=== PATIENT | male | born 1940 | race Caucasian/White ===

== ENCOUNTER 2016-12-29 10:31 | Inpatient (IN) | payer MEDICARE ==
--- NOTE | ~2016-12-29 | DS ---
Discharge Summary [facility] [address] [facility] [place]. [address] NAME: SARAH VALLE : 41 STATUS : DIS IN PAT#: [id number] AGE: 76 ADM/REG DATE : 12/29/16 MR#: [id number] REPORT SERV DATE: 01/04/17 DICTATED BY: ANDRES ESCALONA DATE: 01/03/17 REPORT STATUS : Draft TRANSCRIBED BY: MODL DATE: 01/03/17 ADMISSION DATE: 12/29/2016 DISCHARGE DATE: 01/03/2017 REASON FOR ADMISSION: Encephalopathy and rhabdomyolysis. HISTORY OF PRESENT ILLNESS: Please refer to Dr. Palomo's history and physical dated 12/29/2016 for complete details regarding the patient's admission. In brief, the patient was admitted to the Hospitalist Service for management of his toxic metabolic encephalopathy and hyperammonemia along with rhabdomyolysis. HOSPITAL COURSE: The patient had an uncomplicated hospital course, several issues were addressed. 1. Toxic metabolic encephalopathy, initially with unclear etiology, but the patient is on Depakote for bipolar disorder. He is also taking an SSRI along with Seroquel. His ammonia level was mildly elevated at around 60 on admission. He had a chest x-ray on admission which showed no acute process. The patient was unable to lie flat in order to obtain a CT scan of his abdomen and CT scan of his head. Dr. Palomo admitted the patient and had decreased his Depakote. His Depakote level was around 88, which was within normal limits and started him on lactulose. His toxic metabolic encephalopathy had resolved. He is able to identify where he is and he is alert and oriented times 3 to [address] Blount was consulted and recommended not titrating up to his normal dose of Depakote which was 500 mg in the morning and 1000 at night, but to do [address] Blount also recommended discontinuing his SSRI, but resuming his Seroquel. As stated above, his encephalopathy has resolved back down to baseline. 2. Rhabdomyolysis, mild, presented with CPK of around 2000 to 3000. He was put on IV fluids, this had resolved. 3. History of bipolar disorder. This had been stable. The patient has not had any behavioral changes, in fact, he has been very quite, he has been quite pleasant. 4. Hypothyroidism. We had increased his Synthroid dose from 100 to 125 mg in the hospital. 5. Debility. Physical Therapy had evaluated the patient and recommended rehab. DISPOSITION: The patient will be discharged today to [facility] for further rehab with anticipation of going home after that. We have made some minor medication adjustments. He will be discharged today in stable condition. DISCHARGE DIAGNOSES: 1. Toxic metabolic encephalopathy, likely secondary to hyperammonemia, now resolved. Unable to do a CT scan or an MRI secondary to unable to lie flat. 2. Hyperammonemia secondary to Depakote, now resolved with lactulose. 3. Hypothyroidism. 4. Bipolar disorder. 5. Rhabdomyolysis. PROCEDURES: Include consultation with Dr. Blount and chest x-ray. Discharge Summary [address] [address] NAME: SARAH VALLE : 41 STATUS : DIS IN PAT#: [id number] AGE: 76 ADM/REG DATE : 12/29/16 MR#: [id number] REPORT SERV DATE: 01/04/17 DICTATED BY: ANDRES ESCALONA DATE: 01/03/17 REPORT STATUS : Draft TRANSCRIBED BY: SAMANTHA DATE: 01/03/17 DISCHARGE MEDICATIONS: Include Xanax 0.5 mg at bedtime, Iodosorb gel to topical wounds daily, Depakote 500 mg twice a day, Mcgraw 10/325 mg t.i.d., lactulose 30 mL liquid twice a day to titrate to two to three bowel movements per day, Synthroid 125 mcg daily, magnesium oxide 800 mg twice a day, torsemide 20 mg daily, Seroquel 100 mg at bedtime, albuterol p.r.n., and Klor-Con 10 mEq daily. The patient will be discharged to rehab today. This Dr. Andres Escalona spending over 30 minutes discharge planning and coordination of care of Mr. Valle. DICTATED BY: MD LD Wright/SAMANTHA Andres Escalona MD / [id number] CC: MD Steffen Wright M.D.
--- NOTE | ~2016-12-29 | HP ---
History And Physical [place] [address] [facility] [place]. [address] NAME: SARAH VALLE : 41 STATUS : ADM IN [facility]#: [id number] AGE: 76 ADM/REG DATE : 12/29/16 MR#: [id number] REPORT SERV DATE: 12/29/16 DICTATED BY: MAMIE SILVEIRA DATE: 12/29/16 REPORT STATUS : Draft TRANSCRIBED BY: MODL DATE: 12/29/16 DATE OF ADMISSION: 12/29/2016 REASON FOR ADMISSION: Hepatic encephalopathy and rhabdomyolysis. HISTORY OF PRESENT ILLNESS: Mr. Valle is a 76-year-old male with bipolar disorder with a history of previous hepatic encephalopathy in 2014 during which he had an evaluation, which was negative for evidence of cirrhosis, who presented to the emergency department today with confusion, weakness, found to have once again an elevated ammonia. We were asked to admit. The patient actually denies any confusion. Does acknowledge weakness in his back and in his neck, but no focal weakness. He actually remained ambulatory. He complains of low back pain. No other pains. No headache, no chest pain, and no abdominal pain. No nausea or vomiting. No shortness of breath. The patient denies any seizures. He denies any history of falls. He denies any gastrointestinal or urinary complaints. No fever or chills. No bleeding. He claims he is compliant with medications. He denies any new medications. He denies any visits to a psychiatrist. He says his primary care provider handles his medications. The patient also had a rash for a long time, but does not know the cause thereof. REVIEW OF SYSTEMS: The remainder of review of systems is negative. PAST MEDICAL HISTORY: As mentioned above. MEDICATIONS: Include Xanax, Lasix, potassium, Synthroid, Seroquel, Depakote, [place], Zoloft. There may be some other med list being obtained. ALLERGIES: ALLERGY TO SULFA. FAMILY HISTORY: Positive for coronary artery disease. SOCIAL HISTORY: No tobacco, alcohol, or drugs. PHYSICAL EXAMINATION: VITAL SIGNS: On presentation, blood pressure 162/80, pulse 76, respirations 14, afebrile, sat 96%. GENERAL: Awake, alert, and oriented x3, in no apparent distress. HEENT: Pupils are equal and reactive to light. Extraocular movements are intact. No cranial nerve deficits. Moist mucous membranes. Normal oropharynx. He had very bloodshot sclerae and a facial rash was noted. NECK: Revealed no jugular venous distention, carotid bruits, lymphadenopathy, or goiter. CARDIAC: Regular rate and rhythm. No murmurs, gallops, or rubs. LUNGS: Clear to auscultation bilaterally. Good excursion. ABDOMEN: Nondistended and nontender. Bowel sounds are normal and active. There were no stigmata of chronic liver disease. EXTREMITIES: Revealed 2+ edema bilaterally. Good pulses and capillary refill. He had History And Physical [place] [address] [facility] [place]. [address] NAME: SARAH VALLE : 41 STATUS : ADM IN [facility]#: [id number] AGE: 76 ADM/REG DATE : 12/29/16 MR#: [id number] REPORT SERV DATE: 12/29/16 DICTATED BY: MAMIE SILVEIRA DATE: 12/29/16 REPORT STATUS : Draft TRANSCRIBED BY: SAMANTHA DATE: 12/29/16 significant onychogryphosis of the toenails. SKIN: Notable for a scaly rash somewhat psoriasiform particularly on his arms and stays particularly in sun-exposed areas, also seen on his legs, but notably absent from his abdomen. This was nonblanching and nontender, and again the patient said he had for a long time. NEUROLOGIC: The patient had 5/5 strength in all four extremities. He had no sensory defects. He did, however, have a resting tremor with a hint of asterixis and the diminishment of his finger to nose. PSYCHIATRIC: He was appropriate, but mildly confused. LABORATORY EVALUATION: Sodium 134, potassium 4.0, chloride 94, bicarb 29, BUN 16, creatinine 1.0, glucose 116, CPK of 3363, ammonia of 64. White count 8000, hemoglobin and hematocrit 14 and 41, platelets 181. Depakote 86. Urinalysis negative. Liver function enzymes within normal limits. IMAGING: EKG reviewed by me showed normal sinus rhythm. Chest x-ray reviewed by me showed no apparent disease. ASSESSMENT AND PLAN: 1. Hepatic encephalopathy. The patient was found to have ammonia levels greater than and had a negative hepatic ultrasound at that time. This appears to be related instead to Depakote toxicity as valproic acid is well known to disrupt the urea cycle in the liver. Depakote levels are noted to be toxic as well. This will be held. Lactulose will be initiated. We should, however, maintain an index of suspicion of the possibility of comorbid underlying hepatic disease looking at the workup from last time. He did not have hepatitis serologies given his possible remote exposures. 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 2. Rhabdomyolysis, this is likely also a medication toxicity, almost any psychiatric medicine has been associated with rhabdomyolysis in the past, particularly medicine such as Depakote and also neuroleptic such as Seroquel. Therefore, the neuroleptics will also have to be held, although it is okay to continue his sertraline and benzodiazepines, which may instead need to be increased to account for any agitation he might have. It should be noted the patient with bipolar disease is on an SSRI, however, which is not felt to be helpful in typical bipolar. We will have Dr. Blount help with the management of his psychiatric condition and try to help assist with the long-term plan regarding that. In the meantime in regard to rhabdomyolysis, the patient's urine will need to be alkalinized, and with a goal serum pH of 7.5, he will be initiated on a bicarbonate infusion. Potassium and magnesium will be supplemented in the alkaline state. 3. Hypothyroidism. The patient's TSH will also be evaluated as certainly severe hypo or hyperthyroidism can lead to psychiatric or musculoskeletal side affects. 4. As for the rash, we mentioned the possibility of porphyria cutanea tarda, other considerations would include guttate psoriasis, which typically would not have a predilection for sun-exposed areas, the patient may need Dermatology referral at discharge. 5. Bipolar disease as mentioned above, I do suspect the patient needs a medication History And Physical [address] [address] NAME: SARAH VALLE : 41 STATUS : ADM IN PAT#: [id number] AGE: 76 ADM/REG DATE : 12/29/16 MR#: [id number] REPORT SERV DATE: 12/29/16 DICTATED BY: MAMIE SILVEIRA DATE: 12/29/16 REPORT STATUS : Draft TRANSCRIBED BY: SAMANTHA DATE: 12/29/16 overall. He appears to be intolerant of the Depakote and I questioned whether any changes in neuroleptics will also be required. Dr. Blount will see him in consultation and Dr. Galaviz will see tomorrow. RSAlbert/SAMANTHA Mamie Silveira M.D. / [id number] CC: MD Steffen Wright M.D.
--- NOTE | ~2016-12-29 | CN ---
Consultation Report [facility] [address] [place]. [address] NAME: SARAH PALMA : 41 STATUS : ADM IN PAT#: [id number] AGE: 76 ADM/REG DATE : 12/29/16 MR#: [id number] REPORT SERV DATE: 12/30/16 DICTATED BY: NAHID LUONG DATE: 12/30/16 REPORT STATUS : Draft TRANSCRIBED BY: MODHéctor DATE: 12/30/16 PSYCHIATRIC CONSULTATION DATE OF CONSULTATION: 12/30/2016 I reviewed this patient's current and old medical record. I discussed patient's status with Dr. Palomo, yesterday. HISTORY OF PRESENT ILLNESS: He was admitted with some confusion, rhabdomyolysis, and elevated ammonia level. HOME MEDICATIONS: Included Xanax 1 mg at bedtime, Depakote 500 mg a.m. and 1000 mg bedtime, hydrocodone APAP 10/325 t.i.d., Seroquel 100 mg bedtime, and Zoloft 50 mg daily. I previously saw him in consultation on 03/25/2015, when he was admitted with pneumonia and probable sepsis. At that time, he told me he had three previous psychiatric admissions with symptoms of tri. The [facility] of [facility] His PCP was prescribing his psychotropic medications at that time, and he has continued to do so. The patient also reported that he had experienced episodes of depression over the years. SOCIAL HISTORY: He is . He lives alone. He is still friendly with his ex-. A daughter closely monitors his medications. FAMILY HISTORY: He reported that one sibling has some obsessive-compulsive traits and another may have some mood issues. MENTAL STATUS: Initially, he complained that he did not sleep last night. Otherwise, he was very pleasant and cooperative. He did not remember seeing me about two years ago and he had no memory for that hospitalization. His mood was somewhat anxious. His affect was appropriate. Occasionally, he had difficulty forming or completing a sentence. His mentation was very slow. He had no delusions. He had no hallucinations. He was oriented to "[facility]"[place]." He did not know the month or the year. DIAGNOSES: 1. Delirium, of unclear etiology. 2. Bipolar disorder, by history. RECOMMENDATIONS: I will discontinue the Zoloft and start him back on Seroquel at a reduced dose of 50 mg at bedtime. I will follow. KADE/SAMANTHA Nahid Consultation Report [place] [id number] [place]. [address] NAME: SARAH PALMA : 41 STATUS : ADM IN PAT#: [id number] AGE: 76 ADM/REG DATE : 12/29/16 MR#: [id number] REPORT SERV DATE: 12/30/16 DICTATED BY: NAHID LUONG DATE: 12/30/16 REPORT STATUS : Draft TRANSCRIBED BY: SAMANTHA DATE: 12/30/16 Aye Luong / [id number] CC: MD Steffen Wright M.D.
[~2016-12-29 10:31] MED LIST: *UNABLE1; ALA-CORT1 % EX; COGEN1 PO; COLD PO; DEPAKOT500 PO; DUONEB INH; GENERLAC PO; HYDROCORT0.5 % TOP; HYDROCORT12 TOP; KLOR-CON 1010 MEQ PO; L20 PO; LACT30UDL PO; LEVAQUIN750 MG PO; LEVOTHYROXIN100 MCG PO; LEVOTHYROXIN150 MCG PO; MIRALAXPKT PO; NORCO1 TA2 PO; NORCO1 TAB PO; OMNICEF300 PO; PCET PO; PROBIOTIC CAPSULE PO; PROBIOTIC PO; PROTONIX PO; RISP2 PO; SEROQUEL XR200 MG PO; SEROQUEL1C; SEROQUEL1C PO; SEROQUEL200 MG PO; SYN.15 PO; TYLENOL COUGH PO; VITC500 PO; X5 PO; XANAX1 MG PO; ZITH250 PO; ZOL100 PO; [UNRECOGNIZED DRUG - REMARK] PO
[2016-12-29 11:28] LABS: BASOPHILS 0.1 %; BASOPHILS ABSOLUTE 0.01 10/3/uL (0.0-0.16); EOSINOPHILS 1.8 %; EOSINOPHILS ABSOLUTE 0.14 10/3/uL (0.0-0.53); ER CBC TAT 0 Hrs 07 Mins; HEMATOCRIT 40.8 % (40.0-51.0); HEMOGLOBIN 13.6 g/dL (13.6-17.8); IMMATURE GRANULOCYTES 0.4 %; IMMATURE GRANULOCYTES ABSOLUTE 0.03 10/3/uL (0.0-0.11); LYMPHOCYTES 14.7 %; LYMPHOCYTES ABSOLUTE 1.14 10/3/uL (0.67-4.30); MANUAL DIFF NO %; MEAN CORPUS HGB CONC 33.3 g/dL (32.0-36.0); MEAN CORPUSCULAR HEMOGLOB 30.1 pg (26.0-34.0); MEAN CORPUSCULAR VOLUME 90.3 fL (80-100); MEAN PLATELET VOLUME 9.4 fL (9.2-13.0); MONOCYTES 11.6 %; NEUTROPHILS 71.4 %; NEUTROPHILS ABSOLUTE 5.53 10/3/uL (2.02-8.40); PLATELET COUNT 181 10/3/uL (150-400); RBC DISTRIBUTION WIDTH 14.1 % (12.0-16.0); RED CELL COUNT 4.52 10/6/uL (4.7-6.1); WHITE BLOOD CELLS 7.8 10/3/uL (4.5-10.5)
[2016-12-29 11:32] LABS: ASCORBIC ACID (UR NOT ORDER) NEG (NEG); BILIRUBIN, URINE NEGATIVE (NEG); ER URINALYSIS TAT 0 Hrs 11 Mins; KETONE, URINE NEGATIVE (NEG); LEUKOCYTE ESTERASE(NOT OR NEG (NEG); NITRITE (URINE) NEG (NEG); WBC (NOT ORDERED) (RFLEX) < 1 (0-5)
[2016-12-29 11:37] LABS: PROTIME (NOT ORD) 13.5 SEC (12.0-14.5)
[2016-12-29 11:38] LABS: PARTIAL THROMBO TIME 30.6 SEC (22.5-37.2)
[2016-12-29 11:47] LABS: ALBUMIN 3.4 G/DL (3.5-5.0); BUN (BLOOD UREA NITROGEN) 16 MG/DL (6-23); CALCIUM, SERUM 8.4 MG/DL (8.5-10.4); CHEST PAIN PROFILE TAT 0 Hrs 26 Mins; CHLORIDE, SERUM 99 MMOL/L (96-112); CO2 (CARBON DIOXIDE) 29 MMOL/L (24-34); CREATININE 1.05 MG/DL (0.70-1.30); GFR AFRICAN AMERICAN 80 ML/MIN (>=60); GFR NON AFRICAN AMERICAN 69 ML/MIN (>=60); SGOT(AST) 70 U/L (5-40); SGPT(ALT) 27 U/L (5-65); SODIUM, SERUM 134 MMOL/L (135-148); TOTAL BILIRUBIN 0.5 MG/DL (0-1.2); TOTAL PROTEIN 6.7 G/DL (6.0-8.5); TROPONIN I 0.02 NG/ML (<0.05)
[2016-12-29 11:48] LABS: ALKALINE PHOSPHATASE 83 U/L (45-117); DIRECT BILIRUBIN < 0.1 MG/DL (0.0-0.4); GLUCOSE, SERUM 116 MG/DL (60-99); INDIRECT BILIRUBIN(NOT ORDER) 0.4 MG/DL (0.1-0.9)
[2016-12-29 12:00] LABS: CPK 3363 U/L (0-200)
[2016-12-29] MEDS ORDERED: NORCO1 TAB PO (13:25)
[2016-12-29] MEDS ORDERED: DEPAKOT500 PO ×2 (13:25)
[2016-12-29] MEDS ORDERED: L20 PO (13:26)
[2016-12-29] MEDS ORDERED: KLOR-CON 1010 MEQ PO (13:26)
[2016-12-29] MEDS ORDERED: LEVOTHYROXIN100 MCG PO (13:26)
[2016-12-29] MEDS ORDERED: XANAX1 MG PO (13:26)
[2016-12-29] MEDS ORDERED: SEROQUEL1C PO (13:26)
[2016-12-29] MEDS ORDERED: ZOL50 PO (13:27)
[2016-12-29] MEDS ORDERED: ALBUTEROL0.083 % INH (13:28)
[2016-12-29] MEDS ORDERED: ADVIL PO (13:28)
[2016-12-30 09:12] LABS: BASOPHILS 0.1 %; BASOPHILS ABSOLUTE 0.01 10/3/uL (0.0-0.16); EOSINOPHILS 1.6 %; EOSINOPHILS ABSOLUTE 0.16 10/3/uL (0.0-0.53); HEMATOCRIT 43.5 % (40.0-51.0); HEMOGLOBIN 14.7 g/dL (13.6-17.8); IMMATURE GRANULOCYTES 0.3 %; IMMATURE GRANULOCYTES ABSOLUTE 0.03 10/3/uL (0.0-0.11); LYMPHOCYTES 10.3 %; LYMPHOCYTES ABSOLUTE 1.02 10/3/uL (0.67-4.30); MEAN CORPUS HGB CONC 33.8 g/dL (32.0-36.0); MEAN CORPUSCULAR HEMOGLOB 30.9 pg (26.0-34.0); MEAN CORPUSCULAR VOLUME 91.4 fL (80-100); MEAN PLATELET VOLUME 9.3 fL (9.2-13.0); MONOCYTES 10.1 %; NEUTROPHILS 77.6 %; NEUTROPHILS ABSOLUTE 7.65 10/3/uL (2.02-8.40); PLATELET COUNT 180 10/3/uL (150-400); RBC DISTRIBUTION WIDTH 13.8 % (12.0-16.0); RED CELL COUNT 4.76 10/6/uL (4.7-6.1); WHITE BLOOD CELLS 9.9 10/3/uL (4.5-10.5)
[2016-12-30 09:14] LABS: MANUAL DIFF NO %
[2016-12-30 09:20] LABS: PARTIAL THROMBO TIME 31.3 SEC (22.5-37.2); PROTIME (NOT ORD) 13.2 SEC (12.0-14.5)
[2016-12-30 09:44] LABS: ALBUMIN 3.3 G/DL (3.5-5.0); ALKALINE PHOSPHATASE 86 U/L (45-117); CHLORIDE, SERUM 96 MMOL/L (96-112); CPK 2492 U/L (0-200); CREATININE 0.97 MG/DL (0.70-1.30); GFR AFRICAN AMERICAN 88 ML/MIN (>=60); GFR NON AFRICAN AMERICAN 76 ML/MIN (>=60); GLOBULIN 3.4 G/DL (2.5-4.1); GLUCOSE, SERUM 107 MG/DL (60-99); POTASSIUM, SERUM 3.9 MMOL/L (3.5-5.3); SGOT(AST) 65 U/L (5-40); SGPT(ALT) 29 U/L (5-65); SODIUM, SERUM 133 MMOL/L (135-148); TOTAL BILIRUBIN 0.7 MG/DL (0-1.2); TOTAL PROTEIN 6.7 G/DL (6.0-8.5)
[2016-12-30 09:45] LABS: BUN (BLOOD UREA NITROGEN) 12 MG/DL (6-23); CO2 (CARBON DIOXIDE) 34 MMOL/L (24-34)
[2016-12-30 10:03] LABS: HEPATITIS B SURFACE ANTIGEN NON-REACTIVE (NON-REACT)
[2016-12-30 10:30] LABS: HEPATITIS C ANTIBODY NON-REACTIVE (NON-REACT)
[2016-12-30 10:31] LABS: HEPATITIS B CORE AB IGM NON-REACTIVE (NON-REAC)
[2016-12-30 10:32] LABS: HEP A ANTIBODY IGM NON-REACTIVE (NON-REACT)
[2016-12-30 14:32] LABS: FREE T4 0.81 NG/DL (0.76-1.46)
[2017-01-01 06:25] LABS: BASOPHILS 0.3 %; BASOPHILS ABSOLUTE 0.02 10/3/uL (0.0-0.16); EOSINOPHILS 4.1 %; EOSINOPHILS ABSOLUTE 0.29 10/3/uL (0.0-0.53); HEMATOCRIT 43.5 % (40.0-51.0); HEMOGLOBIN 14.7 g/dL (13.6-17.8); IMMATURE GRANULOCYTES 0.3 %; IMMATURE GRANULOCYTES ABSOLUTE 0.02 10/3/uL (0.0-0.11); LYMPHOCYTES 23.1 %; LYMPHOCYTES ABSOLUTE 1.62 10/3/uL (0.67-4.30); MEAN CORPUS HGB CONC 33.8 g/dL (32.0-36.0); MEAN CORPUSCULAR HEMOGLOB 30.7 pg (26.0-34.0); MEAN CORPUSCULAR VOLUME 90.8 fL (80-100); MEAN PLATELET VOLUME 9.5 fL (9.2-13.0); MONOCYTES ABSOLUTE 0.84 10/3/uL (0.21-1.20); NEUTROPHILS 60.2 %; NEUTROPHILS ABSOLUTE 4.21 10/3/uL (2.02-8.40); PLATELET COUNT 188 10/3/uL (150-400); RBC DISTRIBUTION WIDTH 13.8 % (12.0-16.0); RED CELL COUNT 4.79 10/6/uL (4.7-6.1)
[2017-01-01 06:27] LABS: MANUAL DIFF NO %
[2017-01-01 07:34] LABS: ALBUMIN 3.2 G/DL (3.5-5.0); ALKALINE PHOSPHATASE 81 U/L (45-117); BUN (BLOOD UREA NITROGEN) 14 MG/DL (6-23); CALCIUM, SERUM 8.2 MG/DL (8.5-10.4); CHLORIDE, SERUM 97 MMOL/L (96-112); CREATININE 1.04 MG/DL (0.70-1.30); GFR AFRICAN AMERICAN 81 ML/MIN (>=60); GFR NON AFRICAN AMERICAN 70 ML/MIN (>=60); GLOBULIN 3.2 G/DL (2.5-4.1); PHOSPHORUS, SERUM 3.9 MG/DL (2.5-4.5); SGOT(AST) 39 U/L (5-40); SGPT(ALT) 28 U/L (5-65); SODIUM, SERUM 133 MMOL/L (135-148); TOTAL BILIRUBIN 0.6 MG/DL (0-1.2); TOTAL PROTEIN 6.4 G/DL (6.0-8.5)
[2017-01-01 07:36] LABS: CO2 (CARBON DIOXIDE) 29 MMOL/L (24-34); GLUCOSE, SERUM 85 MG/DL (60-99); POTASSIUM, SERUM 4.7 MMOL/L (3.5-5.3)
[2017-01-03 09:28] LABS: HEMATOCRIT 45.6 % (40.0-51.0); HEMOGLOBIN 15.4 g/dL (13.6-17.8); MEAN CORPUS HGB CONC 33.8 g/dL (32.0-36.0); MEAN CORPUSCULAR HEMOGLOB 30.7 pg (26.0-34.0); MEAN PLATELET VOLUME 9.4 fL (9.2-13.0); PLATELET COUNT 215 10/3/uL (150-400); RBC DISTRIBUTION WIDTH 14.1 % (12.0-16.0); RED CELL COUNT 5.01 10/6/uL (4.7-6.1)
[2017-01-03 09:30] LABS: MANUAL DIFF YES %
[2017-01-03 09:41] LABS: A/G RATIO 0.8 (0.7-1.9); ALBUMIN 3.1 G/DL (3.5-5.0); ALKALINE PHOSPHATASE 82 U/L (45-117); BUN (BLOOD UREA NITROGEN) 22 MG/DL (6-23); CALCIUM, SERUM 8.3 MG/DL (8.5-10.4); CHLORIDE, SERUM 95 MMOL/L (96-112); CO2 (CARBON DIOXIDE) 32 MMOL/L (24-34); GFR AFRICAN AMERICAN 76 ML/MIN (>=60); GFR NON AFRICAN AMERICAN 65 ML/MIN (>=60); GLOBULIN 3.7 G/DL (2.5-4.1); GLUCOSE, SERUM 108 MG/DL (60-99); PHOSPHORUS, SERUM 3.4 MG/DL (2.5-4.5); POTASSIUM, SERUM 4.1 MMOL/L (3.5-5.3); SGOT(AST) 29 U/L (5-40); SGPT(ALT) 32 U/L (5-65); SODIUM, SERUM 133 MMOL/L (135-148); TOTAL BILIRUBIN 0.7 MG/DL (0-1.2); TOTAL PROTEIN 6.8 G/DL (6.0-8.5)
[2017-01-03 10:13] LABS: BAND NEUTROPHILS 2 %; EOSINOPHILS 5 %; EOSINOPHILS ABSOLUTE (CALC) 0.45 10/3/uL (0.0-0.53); LYMPHOCYTES 17 %; LYMPHOCYTES ABSOLUTE (CALC) 1.53 10/3/uL (0.67-4.30); MONOCYTES 12 %; MONOCYTES ABSOLUTE (CALC) 1.08 10/3/uL (0.21-1.20); NEUTROPHILS ABSOLUTE (CALC) 5.94 10/3/uL (2.02-8.40); SEGMENTED NEUTROPHIL (0) 64 %; TOTAL NUCLEATED CELLS 100
[2017-01-03 10:14] LABS: PLATELET ESTIMATE ADQ (ADEQUATE); RBC MORPHOLOGY NORM (NORMAL)
== END 2017-01-03 15:19 | DRG 557 ==
LOC: ER 10:31 → 5SO 13:07
PROVIDERS: Emergency Medicine; Internal Medicine
DX: M62.82 Rhabdomyolysis (principal); G92 Toxic encephalopathy; Z79.899 Other long term (current) drug therapy; Z88.2 Allergy status to sulfonamides; Z82.49 Family history of ischemic heart disease and other diseases of the circulatory system; T42.6X5A Adverse effect of other antiepileptic and sedative-hypnotic drugs, initial encounter; E03.9 Hypothyroidism, unspecified; R21 Rash and other nonspecific skin eruption; F31.9 Bipolar disorder, unspecified
CPT/HCPCS: 71010; 80048; 80053; 80074; 80076; 80164; 81001; 82140; 82550; 83735; 84100; 84439; 84443; 84484; 85025; 85610; 85730; 87040; 93005; 94640; 97116-GP; 97161-GP; 99285; A9270-GY; G8978-CK-GP; G8979-CJ-GP

== ENCOUNTER 2017-01-14 23:20 | Inpatient (IN) | payer MEDICARE ==
--- NOTE | ~2017-01-14 | HP ---
History And Physical [facility] [address] [facility] [place]. [address] NAME: SARAH VALLE : 41 STATUS : ADM IN [facility]#: [id number] AGE: 76 ADM/REG DATE : 01/15/17 MR#: [id number] REPORT SERV DATE: 01/15/17 DICTATED BY: GEOFFREY ORDONEZ DATE: 01/15/17 REPORT STATUS : Draft TRANSCRIBED BY: MODL DATE: 01/15/17 DATE OF ADMISSION: 01/15/2017 CHIEF COMPLAINT: Generalized weakness and altered mental status. HISTORY OF PRESENT ILLNESS: This is a 76-year-old male who has a history of bipolar disorder, hypothyroidism, history of toxic metabolic encephalopathy, and hypertension, who presents to the Emergency Room at [facility] with the above-mentioned complaint. History is obtained from speaking with the ER physician and reviewing data available on the Gather system. Mr. Valle is quite confused today. According to available data, Mr. Valle has been having altered mental status and generalized weakness for the last few days and he was brought here. In the emergency room, initial workup revealed he had a urinary tract infection along with sepsis and Hospitalist Service is asked to admit him for further evaluation and treatment. The patient is not oriented to time or person. At the time of my evaluation, Mr. Valle appeared to be with altered mental status and was unable to give any history or even why he was here. PAST MEDICAL HISTORY: Significant for history of bipolar disorder, hypothyroidism, COPD, toxic metabolic encephalopathy in the past, and hypertension. SOCIAL HISTORY: He does not smoke, drink, or use recreational drugs. FAMILY HISTORY: Noncontributory. MEDICATIONS: At home were reviewed, but pharmacy has to reconcile the medications. This will not be done until the morning. I have reviewed the list. REVIEW OF SYSTEMS: Unobtainable due to the patient's current encephalopathy. PHYSICAL EXAMINATION: GENERAL: This is a pleasant 76-year-old, not in any acute distress. HEENT: His head is atraumatic, normocephalic. Pupils are equal, reacting to light and accommodating. NECK: Supple with no jugular venous distention, lymphadenopathy, or thyromegaly. LUNGS: Clear to auscultation with no wheezes, rubs, or crackles. HEART: Heart sounds were regular with no murmurs, rubs, or gallops. ABDOMEN: Soft, nontender. Bowel sounds are present. EXTREMITIES: Showed no cyanosis, clubbing, or edema. NEUROLOGIC: Grossly intact. He was able to move all four extremities. He follows some commands, unable to reply to any questions. VITAL SIGNS: His vital signs today showed a temperature of 100.1 degrees Fahrenheit, pulse was 115, respirations 22 a minute, and blood pressure upon arrival was 116/69, oxygen History And Physical [address] [address] NAME: SARAH VALLE : 41 STATUS : ADM IN [facility]#: [id number] AGE: 76 ADM/REG DATE : 01/15/17 MR#: [id number] REPORT SERV DATE: 01/15/17 DICTATED BY: GEOFFREY ORDONEZ DATE: 01/15/17 REPORT STATUS : Draft TRANSCRIBED BY: SAMANTHA DATE: 01/15/17 saturations were 91% on room air. LABORATORY DATA: Reviewed on the Gather system showed a procalcitonin of 0.30, sodium was 138, potassium 4.5, chloride 101, CO2 of 31, BUN was 28 with a creatinine of 1.52 which is up from his baseline of 1.0 to 1.1. His magnesium was 2.7 today, calcium was 8.6. His CPK was 204 today, it was 2492 on 12/30/2016. His Depakene level was 84.5 today, ammonia was 27. CBC revealed a white blood cell count of 17,000, normal hemoglobin, hematocrit, and platelet count. Urinalysis showed large leukocyte esterase, nitrite was negative. There were greater than 182 wbc's with 115 rbc's as well. There were many bacteria. Films of the chest x-ray were reviewed by me on the PACS today and interpreted by me. Today's films were compared to films on 12/29/2016 as well. Compared to prior films, there has been no acute change. There are no lobar consolidations or pleural effusions seen in today's films. A 12 lead EKG done in the emergency room was reviewed and interpreted by me. There is sinus tachycardia at a rate of [address] changes. IMPRESSION: 1. Generalized weakness. 2. Metabolic encephalopathy. 3. Urinary tract infection. 4. Sepsis. 5. Bipolar disorder. 6. Hypothyroidism. 7. Chronic obstructive pulmonary disease. 8. Essential hypertension. PLAN: We will admit Mr. Valle to the Hospitalist Service with telemetry. After cultures are obtained, we will start him on empiric IV antibiotics for his urinary tract infection. Prior cultures done here show urine with Enterococcus faecalis. We will cover him with vancomycin and Rocephin as well. We will follow Gram-stain cultures and titrate accordingly. Start him on IV fluids for volume resuscitation at this time and we will go ahead and maximize with bronchodilator treatments and supplemental oxygen therapy. We will also check his TSH and T4. We will continue all other home medications when the list is available, but we will hold most of his medications for now which was encephalopathy. He will also be placed on unfractionated heparin for DVT prophylaxis. Please see today's orders for details. Hospitalist Service will be following him during his stay. /SAMANTHA Geoffrey Ordonez M.D. / [id number] History And Physical [address] [address] NAME: SARAH VALLE : 41 STATUS : ADM IN [facility]#: [id number] AGE: 76 ADM/REG DATE : 01/15/17 MR#: [id number] REPORT SERV DATE: 01/15/17 DICTATED BY: GEOFFREY ORDONEZ DATE: 01/15/17 REPORT STATUS : Draft TRANSCRIBED BY: SAMANTHA DATE: 01/15/17 CC: Aye Limon M.D.
--- NOTE | ~2017-01-14 | DS ---
Discharge Summary [place] [address] [place]. [address] NAME: SARAH PALMA : 42 STATUS : DIS IN PAT#: [id number] AGE: 76 ADM/REG DATE : 01/15/17 MR#: [id number] REPORT SERV DATE: 01/23/17 DICTATED BY: ANGELO TIM DATE: 01/22/17 REPORT STATUS : Draft TRANSCRIBED BY: MODL DATE: 01/22/17 ADMISSION DATE: 01/15/2017 DISCHARGE DATE: 01/22/2017 REASON FOR ADMISSION: This is a 76-year-old male with generalized weakness and altered mental status. DISCHARGE DIAGNOSES: 1. Urinary tract infection; status post sepsis, urine positive for Serratia. 2. Bipolar disorder. 3. Hypothyroid. 4. Hypertension. 5. Chronic obstructive pulmonary disease. 6. Toxic metabolic encephalopathy. 7. Elevated ammonia secondary to Depakote. HOSPITAL COURSE: 1. The patient was admitted with metabolic encephalopathy, was found to have a UTI. That urine would culture out for Serratia. He was initially put on IV vancomycin and Rocephin. He was then changed to cefepime and then transitioned after Serratia was cultured out to Levaquin. He has two more days of oral Levaquin to complete his seven days of treatment for Serratia UTI. 2. Bipolar disorder. The patient was seen here at the hospital by Dr. Blount, but the patient was not having any active psychiatric issues. While here at the hospital, his main issue was encephalopathy secondary to his UTI. 3. Elevated ammonia level secondary to Depakote. The patient has had come in for a previous hospitalization for encephalopathy related to elevated ammonia level here at the hospital. During his stay, his Depakote dosage was decreased and his ammonia levels here at this hospital stay was normal at 29. He is on lactulose for maintenance ammonia level as well. DISCHARGE CONDITION: Stable. DISCHARGE MEDICATIONS: 1. Levaquin 750 mg p.o. daily x2 more doses. 2. Lipoic acid 300 mg p.o. b.i.d. 3. Xanax 0.5 mg q.h.s. 4. Vitamin C 500 mg p.o. b.i.d. 5. Vitamin D 1000 units p.o. b.i.d. 6. Depakote 500 mg p.o. b.i.d. 7. Synthroid 125 mcg p.o. daily. 8. Mag-Ox 800 mg p.o. b.i.d. 9. Melatonin 3 mg p.o. q.h.s. 10.Potassium chloride 10 mEq p.o. b.i.d. 11.Seroquel 100 mg p.o. q.h.s. 12.Lactulose 30 mL p.o. q.h.s. Discharge Summary [address] [address] NAME: SARAH PALMA : 42 STATUS : DIS IN PAT#: [id number] AGE: 76 ADM/REG DATE : 01/15/17 MR#: [id number] REPORT SERV DATE: 01/23/17 DICTATED BY: ANGELO TIM DATE: 01/22/17 REPORT STATUS : Draft TRANSCRIBED BY: SAMANTHA DATE: 01/22/17 13.Torsemide 20 mg p.o. daily. DISCHARGE PLAN: The patient is discharged to [facility] for rehab. He was still weak at the conclusion of hospital stay and PT recommended rehab. He is being discharged here today and will follow up with his primary care, Dr. Steffen Bernstein, at conclusion of rehab. DICTATED BY: DANII Mccullough/SAMANTHA Angelo Tim APN / [id number] CC: Aye Schafer M.D.
[~2017-01-14 23:20] MED LIST changes: +ADVIL PO; +ALBUTEROL0.083 % INH; +ZOL50 PO
[2017-01-14 23:40] LABS: BASOPHILS 0.1 %; BASOPHILS ABSOLUTE 0.01 10/3/uL (0.0-0.16); EOSINOPHILS 0 %; HEMATOCRIT 42.6 % (40.0-51.0); HEMOGLOBIN 14.1 g/dL (13.6-17.8); IMMATURE GRANULOCYTES 0.3 %; IMMATURE GRANULOCYTES ABSOLUTE 0.05 10/3/uL (0.0-0.11); LYMPHOCYTES 5.8 %; LYMPHOCYTES ABSOLUTE 0.98 10/3/uL (0.67-4.30); MEAN CORPUS HGB CONC 33.1 g/dL (32.0-36.0); MEAN CORPUSCULAR HEMOGLOB 30.7 pg (26.0-34.0); MEAN CORPUSCULAR VOLUME 92.6 fL (80-100); MEAN PLATELET VOLUME 9.5 fL (9.2-13.0); MONOCYTES 8.4 %; MONOCYTES ABSOLUTE 1.43 10/3/uL (0.21-1.20); NEUTROPHILS 85.4 %; NEUTROPHILS ABSOLUTE 14.53 10/3/uL (2.02-8.40); PLATELET COUNT 211 10/3/uL (150-400); RBC DISTRIBUTION WIDTH 14.3 % (12.0-16.0)
[2017-01-14 23:43] LABS: ER CBC TAT 0 Hrs 09 Mins; MANUAL DIFF NO %
[2017-01-14 23:53] LABS: INTERNATIONAL NORMAL RATI 1.2 UNITS (-); PROTIME (NOT ORD) 14.7 SEC (12.0-14.5)
[2017-01-14 23:57] LABS: A/G RATIO 0.8 (0.7-1.9); ALBUMIN 3.2 G/DL (3.5-5.0); ALKALINE PHOSPHATASE 79 U/L (45-117); BUN (BLOOD UREA NITROGEN) 28 MG/DL (6-23); CALCIUM, SERUM 8.6 MG/DL (8.5-10.4); CHLORIDE, SERUM 101 MMOL/L (96-112); CO2 (CARBON DIOXIDE) 31 MMOL/L (24-34); CPK 204 U/L (0-200); CREATININE 1.52 MG/DL (0.70-1.30); DEPAKENE (VALPROIC ACID) 84.5 MCG/ML (50.0-100.0); GFR AFRICAN AMERICAN 51 ML/MIN (>=60); GFR NON AFRICAN AMERICAN 44 ML/MIN (>=60); GLOBULIN 3.8 G/DL (2.5-4.1); GLUCOSE, SERUM 116 MG/DL (60-99); POTASSIUM, SERUM 4.5 MMOL/L (3.5-5.3); SGOT(AST) 26 U/L (5-40); SGPT(ALT) 30 U/L (5-65); SODIUM, SERUM 138 MMOL/L (135-148); TOTAL BILIRUBIN 0.6 MG/DL (0-1.2)
[2017-01-14 23:58] LABS: LACTATE 1.2 MMOL/L (0.3-2.4)
[2017-01-15] MEDS ORDERED: LACTULOSE 10 GM/15 ML (00:14)
[2017-01-15] MEDS ORDERED: [UNRECOGNIZED DRUG - OTHER] (00:15)
[2017-01-15] MEDS ORDERED: NORCO (00:17)
[2017-01-15] MEDS ORDERED: *UNABLE1 (00:18)
[2017-01-15 02:13] LABS: ASCORBIC ACID (UR NOT ORDER) 40 (NEG); BILIRUBIN, URINE NEGATIVE (NEG); ER URINALYSIS TAT 0 Hrs 00 Mins; KETONE, URINE TRACE MG/DL (NEG); LEUKOCYTE ESTERASE(NOT OR LARGE (NEG); NITRITE (URINE) NEG (NEG)
[2017-01-15 02:14] LABS: WBC (NOT ORDERED) (RFLEX) > 182 (0-5)
[2017-01-15 07:41] LABS: LACTATE 0.9 MMOL/L (0.3-2.4)
[2017-01-15 07:48] LABS: A/G RATIO 0.7 (0.7-1.9); ALBUMIN 2.7 G/DL (3.5-5.0); ALKALINE PHOSPHATASE 71 U/L (45-117); BUN (BLOOD UREA NITROGEN) 24 MG/DL (6-23); CHLORIDE, SERUM 107 MMOL/L (96-112); CO2 (CARBON DIOXIDE) 24 MMOL/L (24-34); CREATININE 1.23 MG/DL (0.70-1.30); GFR AFRICAN AMERICAN 66 ML/MIN (>=60); GFR NON AFRICAN AMERICAN 57 ML/MIN (>=60); GLOBULIN 3.9 G/DL (2.5-4.1); GLUCOSE, SERUM 101 MG/DL (60-99); PHOSPHORUS, SERUM 3.8 MG/DL (2.5-4.5); SGPT(ALT) 26 U/L (5-65); SODIUM, SERUM 139 MMOL/L (135-148); TOTAL BILIRUBIN 0.9 MG/DL (0-1.2); TOTAL PROTEIN 6.6 G/DL (6.0-8.5)
[2017-01-15 07:49] LABS: POTASSIUM, SERUM 4.8 MMOL/L (3.5-5.3); SGOT(AST) 31 U/L (5-40)
[2017-01-15 07:50] LABS: HEMATOCRIT 42.1 % (40.0-51.0); MANUAL DIFF YES %; MEAN CORPUS HGB CONC 33.3 g/dL (32.0-36.0); MEAN CORPUSCULAR HEMOGLOB 31.3 pg (26.0-34.0); MEAN PLATELET VOLUME 10.2 fL (9.2-13.0); NUCLEATED RED BLOOD CELLS 0.4 /100WBC (0-0); PLATELET COUNT 183 10/3/uL (150-400); RBC DISTRIBUTION WIDTH 14.8 % (12.0-16.0); RED CELL COUNT 4.48 10/6/uL (4.7-6.1); WHITE BLOOD CELLS 17.6 10/3/uL (4.5-10.5)
[2017-01-15 08:18] LABS: LYMPHOCYTES 12 %; LYMPHOCYTES ABSOLUTE (CALC) 2.11 10/3/uL (0.67-4.30); MONOCYTES 6 %; MONOCYTES ABSOLUTE (CALC) 1.06 10/3/uL (0.21-1.20); NEUTROPHILS ABSOLUTE (CALC) 14.43 10/3/uL (2.02-8.40); PLATELET ESTIMATE ADQ (ADEQUATE); RBC MORPHOLOGY NORM (NORMAL); SEGMENTED NEUTROPHIL (0) 82 %; TOTAL NUCLEATED CELLS 100
[2017-01-15] MEDS ORDERED: NORCO1 TAB PO (13:34)
[2017-01-15] MEDS ORDERED: ALPHA LIPOIC300 MG PO (13:34)
[2017-01-15] MEDS ORDERED: VITC500 PO (13:35)
[2017-01-15] MEDS ORDERED: DEPAKOT500 PO (13:35)
[2017-01-15] MEDS ORDERED: X5 PO (13:35)
[2017-01-15] MEDS ORDERED: VITAMIN D1000 UNI1 PO (13:35)
[2017-01-15] MEDS ORDERED: MELA3 PO (13:36)
[2017-01-15] MEDS ORDERED: LEVOTHYROXIN125 MCG PO (13:36)
[2017-01-15] MEDS ORDERED: MAGOX4 PO (13:36)
[2017-01-15] MEDS ORDERED: CONSTULOSE PO (13:36)
[2017-01-15] MEDS ORDERED: SEROQUEL1C PO (13:37)
[2017-01-15] MEDS ORDERED: XIFAXAN550 MG PO (13:37)
[2017-01-15] MEDS ORDERED: KDUR10 PO (13:37)
[2017-01-15] MEDS ORDERED: DEMA20 PO (13:38)
[2017-01-15] MEDS ORDERED: ZOLOFT (13:42)
[2017-01-15] MEDS ORDERED: XANAX (13:42)
[2017-01-15] MEDS ORDERED: SEROQUEL (13:42)
[2017-01-15] MEDS ORDERED: SYNTHROID (13:42)
[2017-01-15] MEDS ORDERED: DEMADEX (13:42)
[2017-01-15] MEDS ORDERED: DEPAKOTE DR (13:42)
[2017-01-16 05:56] LABS: BASOPHILS 0.2 %; BASOPHILS ABSOLUTE 0.02 10/3/uL (0.0-0.16); EOSINOPHILS 1.1 %; EOSINOPHILS ABSOLUTE 0.14 10/3/uL (0.0-0.53); IMMATURE GRANULOCYTES 0.2 %; IMMATURE GRANULOCYTES ABSOLUTE 0.03 10/3/uL (0.0-0.11); LYMPHOCYTES 9.4 %; LYMPHOCYTES ABSOLUTE 1.23 10/3/uL (0.67-4.30); MEAN CORPUS HGB CONC 32.3 g/dL (32.0-36.0); MEAN CORPUSCULAR HEMOGLOB 30.7 pg (26.0-34.0); MEAN CORPUSCULAR VOLUME 94.9 fL (80-100); MEAN PLATELET VOLUME 9.9 fL (9.2-13.0); MONOCYTES 7.8 %; MONOCYTES ABSOLUTE 1.02 10/3/uL (0.21-1.20); NEUTROPHILS 81.3 %; NEUTROPHILS ABSOLUTE 10.67 10/3/uL (2.02-8.40); PLATELET COUNT 175 10/3/uL (150-400); RBC DISTRIBUTION WIDTH 14.7 % (12.0-16.0); RED CELL COUNT 3.91 10/6/uL (4.7-6.1); WHITE BLOOD CELLS 13.1 10/3/uL (4.5-10.5)
[2017-01-16 05:59] LABS: A/G RATIO 0.7 (0.7-1.9); ALBUMIN 2.4 G/DL (3.5-5.0); ALKALINE PHOSPHATASE 68 U/L (45-117); BUN (BLOOD UREA NITROGEN) 24 MG/DL (6-23); CALCIUM, SERUM 7.9 MG/DL (8.5-10.4); CHLORIDE, SERUM 109 MMOL/L (96-112); CO2 (CARBON DIOXIDE) 26 MMOL/L (24-34); GFR AFRICAN AMERICAN 76 ML/MIN (>=60); GFR NON AFRICAN AMERICAN 65 ML/MIN (>=60); GLOBULIN 3.6 G/DL (2.5-4.1); GLUCOSE, SERUM 85 MG/DL (60-99); POTASSIUM, SERUM 4.2 MMOL/L (3.5-5.3); SGOT(AST) 17 U/L (5-40); SGPT(ALT) 26 U/L (5-65); SODIUM, SERUM 139 MMOL/L (135-148)
[2017-01-16 06:00] LABS: HEMATOCRIT 37.1 % (40.0-51.0); MANUAL DIFF NO %
[2017-01-16 06:03] LABS: TOTAL BILIRUBIN 0.4 MG/DL (0-1.2)
[2017-01-16 06:47] LABS: PROCALCITONIN 0.38 ng/mL (<0.5)
[2017-01-18 03:47] LABS: BASOPHILS 0.3 %; BASOPHILS ABSOLUTE 0.02 10/3/uL (0.0-0.16); EOSINOPHILS 4.4 %; EOSINOPHILS ABSOLUTE 0.27 10/3/uL (0.0-0.53); HEMATOCRIT 36.9 % (40.0-51.0); HEMOGLOBIN 12.4 g/dL (13.6-17.8); IMMATURE GRANULOCYTES 0.3 %; IMMATURE GRANULOCYTES ABSOLUTE 0.02 10/3/uL (0.0-0.11); LYMPHOCYTES 18.1 %; LYMPHOCYTES ABSOLUTE 1.11 10/3/uL (0.67-4.30); MEAN CORPUS HGB CONC 33.6 g/dL (32.0-36.0); MEAN CORPUSCULAR HEMOGLOB 30.5 pg (26.0-34.0); MEAN PLATELET VOLUME 9.8 fL (9.2-13.0); MONOCYTES 12.1 %; MONOCYTES ABSOLUTE 0.74 10/3/uL (0.21-1.20); NEUTROPHILS 64.8 %; NEUTROPHILS ABSOLUTE 3.97 10/3/uL (2.02-8.40); PLATELET COUNT 187 10/3/uL (150-400); RBC DISTRIBUTION WIDTH 14.1 % (12.0-16.0); RED CELL COUNT 4.06 10/6/uL (4.7-6.1)
[2017-01-18 03:56] LABS: MANUAL DIFF NO %; MEAN CORPUSCULAR VOLUME 90.9 fL (80-100); WHITE BLOOD CELLS 6.1 10/3/uL (4.5-10.5)
[2017-01-18 04:00] LABS: CALCIUM, SERUM 8.3 MG/DL (8.5-10.4); CHLORIDE, SERUM 103 MMOL/L (96-112); CO2 (CARBON DIOXIDE) 25 MMOL/L (24-34); CREATININE 0.83 MG/DL (0.70-1.30); GFR AFRICAN AMERICAN 100 ML/MIN (>=60); GFR NON AFRICAN AMERICAN 86 ML/MIN (>=60); GLUCOSE, SERUM 93 MG/DL (60-99); POTASSIUM, SERUM 4.3 MMOL/L (3.5-5.3); SODIUM, SERUM 134 MMOL/L (135-148)
[2017-01-18 04:06] LABS: BUN (BLOOD UREA NITROGEN) 14 MG/DL (6-23)
== END 2017-01-22 18:31 | DRG 871 ==
LOC: ER 23:20 → 6NO 01-15 03:27
PROVIDERS: Emergency Medicine; Internal Medicine; Internal Medicine Pulmonary Disease
DX: A41.9 Sepsis, unspecified organism (principal); G92 Toxic encephalopathy; N39.0 Urinary tract infection, site not specified; J44.9 Chronic obstructive pulmonary disease, unspecified; F31.9 Bipolar disorder, unspecified; I10 Essential (primary) hypertension; E03.9 Hypothyroidism, unspecified; R00.0 Tachycardia, unspecified; B96.89 Other specified bacterial agents as the cause of diseases classified elsewhere; R78.89 Finding of other specified substances, not normally found in blood; T42.6X5A Adverse effect of other antiepileptic and sedative-hypnotic drugs, initial encounter
CPT/HCPCS: 70450; 71010; 74176; 80048; 80053; 80164; 81001; 82140; 82550; 83605; 83735; 84100; 84145; 84443; 85025; 85610; 85730; 87040; 87077; 87086; 87186; 93005; 94640; 96374; 97162-GP; 97530-GP; 99285; A9270-GY; G8978-CK-GP; G8979-CJ-GP; J0692; J3370; J3411